=== PATIENT | male | born 1985 | race Hispanic/Latino ===

== ENCOUNTER 2025-09-24 13:40 | Emergency (ER) | payer BC, SELFPAY ==
[2025-09-24] MEDS ORDERED: HYDROcodone/Acetaminophen 10/325 mg Tablet ONE (14:18)
[2025-09-24] MEDS ORDERED: Amoxicillin/Potassium Clav 875 MG TAB ONE (15:31)
== END 2025-09-24 15:37 | disposition home or self-care (01) ==
LOC: ERS 13:40
DX: S61.451A Open bite of right hand, initial encounter (principal); S00.01XA Abrasion of scalp, initial encounter; F17.210 Nicotine dependence, cigarettes, uncomplicated; F17.290 Nicotine dependence, other tobacco product, uncomplicated; W54.0XXA Bitten by dog, initial encounter
CPT/HCPCS: 99283